=== PATIENT | female | born 2005 | race Caucasian/White ===

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

== ENCOUNTER → 2025-03-16 | Outpatient (CLI) | payer OTHER, SELFPAY ==
--- NOTE | 2025-03-16 07:30 | XR_ITS ---
Examination: Thyroid sonography complete TECHNIQUE: Grayscale sonographic images thyroid lobes Date and time: March 16, 2025 0720 hours INDICATIONS: Thyroid sonogram September 29, 2024 isthmus thyroid nodule 5 mm, 6 mm FINDINGS: Right thyroid 5.4 cm No nodules Isthmus thyroid nodule 4 x 4 millimeter Left thyroid 5.3 cm Midpole nodule 6 x 6 mm IMPRESSION: Thyroid nodules as above
[2025-03-16 08:54] LABS: Free T4 (Free Thyroxine) 1.25 ng/dL (0.89-1.76); Thyroid Stimulating Hormone 2.55 uIU/mL (0.55-4.78)
== END | disposition home or self-care (01) ==
LOC: CDIM 07:10 → COPL 07:34
PROVIDERS: PCP Internal Medicine; Referring Provider Pediatrics; Visit Provider Pediatrics
DX: E06.3 Autoimmune thyroiditis (principal)
CPT/HCPCS: 36415; 76536; 84439; 84443